=== PATIENT | female | born 1945 | race Two or more races ===

== ENCOUNTER 2021-06-27 06:00 | Day surgery (SDC) | payer OTHER | END 2021-06-27 12:50 | disposition home or self-care (01) | LOC: AMB-ENDOS 06:00 | PROVIDERS: ATTEND Surgery | DX: K64.4 Residual hemorrhoidal skin tags (principal); K57.30 Diverticulosis of large intestine without perforation or abscess without bleeding; Z20.822 Contact with and (suspected) exposure to COVID-19 ==

== ENCOUNTER 2021-07-29 10:27 | Inpatient (IN) | payer OTHER ==
[~2021-07-29] VITALS: Ht 157.5 cm; Wt 67.1 kg
[2021-07-29] MEDS ORDERED: DICY20TA PO (13:03)
[2021-07-29] MEDS ORDERED: DRAMAMINE LESS25 MG PO (13:03)
[2021-07-29] MEDS ORDERED: CIPRO500 MG/5 M PO (13:04)
[2021-07-29] MEDS ORDERED: DICYCLOMINE HCL20 MG PO (13:04)
[2021-07-29] MEDS ORDERED: LEVOTHYROXINE25 MCG PO (13:05)
[2021-08-05] MEDS ORDERED: PERCOCET 5-3251 EACH PO (15:20)
[2021-08-05] MEDS ORDERED: CIPRO500 MG PO (15:21)
== END 2021-08-05 16:17 | disposition home or self-care (01) | DRG 331 ==
LOC: O/R 08-01 06:05 → SURH 08-01 06:05
PROVIDERS: ADMIT Surgery; ATTEND Surgery
PROC: 0DBP4ZZ Excision of Rectum, Percutaneous Endoscopic Approach (ICD-10-PCS; 2021-08-01)
PROC: 0DJD8ZZ Inspection of Lower Intestinal Tract, Via Natural or Artificial Opening Endoscopic (ICD-10-PCS; 2021-08-01)
PROC: 0DTN4ZZ Resection of Sigmoid Colon, Percutaneous Endoscopic Approach (ICD-10-PCS; principal; 2021-08-01 09:45)
DX: K57.30 Diverticulosis of large intestine without perforation or abscess without bleeding (principal); R10.9 Unspecified abdominal pain; R14.1 Gas pain; R19.4 Change in bowel habit; E03.8 Other specified hypothyroidism; Z20.822 Contact with and (suspected) exposure to COVID-19